=== PATIENT | female | born 1945 | race Caucasian/White ===

== ENCOUNTER 2018-01-03 11:39 | Outpatient (REF) | payer MEDICARE, BC, SELFPAY | END 2018-01-03 11:40 | LOC: NCHCN 11:39 | PROVIDERS: PCP Internal Medicine; Visit Provider Internal Medicine | DX: R30.9 Painful micturition, unspecified (principal); R35.0 Frequency of micturition | CPT/HCPCS: 87077; 87086; 87186 ==

== ENCOUNTER 2018-04-22 09:54 | Outpatient (CLI) | payer MEDICARE, BC, SELFPAY ==
[2018-04-22 10:19] LABS: Absolute Basophil Count 0.02 k/cumm (0.0-0.2); Absolute Eosinophil Count 0.18 k/cumm (0.0-0.7); Absolute Lymphocyte Count 1.18 k/cumm (1.2-3.4); Absolute Monocyte Count 0.39 k/cumm (0.11-0.7); Absolute Neutrophil Count 2.48 k/cumm (1.2-6.7); Basophils % 0.5; Eosinophils % 4.2; HCT 38.4 % (36.0-46.0); HGB 13.6 g/dL (12.0-15.5); Lymphocytes % 27.8; Mean Corp. HGB Concentration 35.4 g/dL (32.0-36.0); Mean Corpuscular Hemoglobin 31.5 pg (27.0-33.0); Mean Corpuscular Volume 88.9 fL (80-95); Mean Platelet Volume 9.3 fL (8.0-11.0); Monocytes % 9.2; Neutrophils % 58.3; Platelet Count 190 x1000/uL (130-400); RBC 4.32 m/cumm (4.00-5.20); RBC Distribution Width 12.7 % (11.7-14.6); White Blood Cell Count 4.25 k/cumm (4.4-10.8)
[2018-04-22 10:31] LABS: ALT 46 U/L (12-78); AST 27 U/L (15-37); Albumin 3.7 g/dL (3.4-5.0); Alkaline Phosphatase 62 U/L (46-116); Anion Gap 9.5 mmol/L (3-11); BUN 22 mg/dL (7-18); Bilirubin, Total 0.7 mg/dL (0.2-1.0); CO2 28.5 mmol/L (21.0-32.0); CREATININE 0.99 mg/dL (0.55-1.02); Calcium 10.3 mg/dL (8.5-10.1); Chloride 104 mmol/L (98-107); Estimated GFR 55.14 (mL/min/1.73m2); Glucose 134 mg/dL (70-100); Potassium 3.5 mmol/L (3.5-5.1); Sodium 142 mmol/L (136-145); Total Protein 7.3 g/dL (6.4-8.2)
== END 2018-04-22 10:14 ==
PROVIDERS: PCP Internal Medicine; Visit Provider Nurse Practitioner Adult Health
DX: C50.412 Malignant neoplasm of upper-outer quadrant of left female breast (principal); Z17.0 Estrogen receptor positive status [ER+]
CPT/HCPCS: 36415; 80053; 85025

== ENCOUNTER 2018-05-20 11:10 | Outpatient (REF) | payer MEDICARE, BC, SELFPAY | END 2018-05-20 11:30 | LOC: NCHCN 11:10 | PROVIDERS: PCP Internal Medicine; Visit Provider Internal Medicine | DX: R30.0 Dysuria (principal) | CPT/HCPCS: 87077; 87086; 87186 ==

== ENCOUNTER 2019-01-30 14:11 | Outpatient (CLI) | payer MEDICARE, BC, SELFPAY ==
[2019-01-30 14:30] LABS: Absolute Basophil Count 0.04 k/cumm (0.0-0.2); Absolute Eosinophil Count 0.39 k/cumm (0.0-0.7); Absolute Lymphocyte Count 1.28 k/cumm (1.2-3.4); Absolute Monocyte Count 0.47 k/cumm (0.11-0.7); Absolute Neutrophil Count 2.94 k/cumm (1.2-6.7); Basophils % 0.8; Eosinophils % 7.6; HCT 37.9 % (36.0-46.0); HGB 13.1 g/dL (12.0-15.5); Mean Corp. HGB Concentration 34.6 g/dL (32.0-36.0); Mean Corpuscular Hemoglobin 30.8 pg (27.0-33.0); Mean Corpuscular Volume 89.2 fL (80-95); Mean Platelet Volume 9.4 fL (8.0-11.0); Monocytes % 9.2; Neutrophils % 57.4; Platelet Count 217 x1000/uL (130-400); RBC 4.25 m/cumm (4.00-5.20); White Blood Cell Count 5.12 k/cumm (4.4-10.8)
[2019-01-30 14:44] LABS: ALT 25 U/L (14-59); AST 22 U/L (15-37); Albumin 3.7 g/dL (3.4-5.0); Alkaline Phosphatase 71 U/L (46-116); Anion Gap 8.6 mmol/L (3-11); BUN 19 mg/dL (7-18); CO2 28.4 mmol/L (21.0-32.0); CREATININE 0.95 mg/dL (0.55-1.02); Calcium 9.5 mg/dL (8.5-10.1); Chloride 103 mmol/L (98-107); Estimated GFR 57.66 (mL/min/1.73m2); Glucose 143 mg/dL (70-100); Potassium 3.6 mmol/L (3.5-5.1); Sodium 140 mmol/L (136-145); Total Protein 7.3 g/dL (6.4-8.2)
[2019-01-31 15:58] LABS: Cancer Ag 15-3 16 U/mL (<30)
== END 2019-01-30 14:31 ==
PROVIDERS: PCP Internal Medicine; Visit Provider Nurse Practitioner Adult Health
DX: C56.9 Malignant neoplasm of unspecified ovary (principal); C50.412 Malignant neoplasm of upper-outer quadrant of left female breast; Z17.0 Estrogen receptor positive status [ER+]
CPT/HCPCS: 36415; 80053; 86304; 85025; 86300

== ENCOUNTER 2019-04-03 11:31 | Outpatient (REF) | payer MEDICARE, BC, SELFPAY ==
[2019-04-03 21:09] LABS: BUN 17 mg/dL (7-18); CREATININE 0.94 mg/dL (0.55-1.02); Calcium 9.6 mg/dL (8.5-10.1); Chloride 104 mmol/L (98-107); Estimated GFR 58.37 (mL/min/1.73m2); Glucose 102 mg/dL (70-100); Magnesium 1.7 mg/dL (1.8-2.4); Potassium 3.7 mmol/L (3.5-5.1); Sodium 142 mmol/L (136-145)
== END 2019-04-03 11:51 ==
LOC: NCHCN 11:31
PROVIDERS: PCP Nurse Practitioner Family; Visit Provider Nurse Practitioner Family
DX: I10 Essential (primary) hypertension (principal)
CPT/HCPCS: 80048; 83735

== ENCOUNTER → 2019-06-08 09:47 | Outpatient (BNVA) | payer MEDICARE, BC, SELFPAY | PROVIDERS: PCP Nurse Practitioner Family; Referring Provider Nurse Practitioner Family; Visit Provider Psychiatry & Neurology Neurology | DX: H81.13 Benign paroxysmal vertigo, bilateral (principal); R51 Headache; M54.81 Occipital neuralgia | CPT/HCPCS: 64405; 99205; 99215 ==

== ENCOUNTER → 2019-08-23 10:58 | Outpatient (BNVA) | payer MEDICARE, BC, SELFPAY | PROVIDERS: PCP Nurse Practitioner Family; Referring Provider Nurse Practitioner Family; Visit Provider Psychiatry & Neurology Neurology | DX: M54.81 Occipital neuralgia (principal) | CPT/HCPCS: 64405 ==

== ENCOUNTER 2019-11-07 10:11 | Outpatient (RCR) | payer MEDICARE, BC, SELFPAY ==
[2019-11-07 11:22] LABS: ALT 34 U/L (14-59); AST 24 U/L (15-37); Albumin 3.4 g/dL (3.4-5.0); Alkaline Phosphatase 68 U/L (46-116); Anion Gap 7.8 mmol/L (3-11); BUN 17 mg/dL (7-18); Bilirubin, Total 0.9 mg/dL (0.2-1.0); CO2 28.2 mmol/L (21.0-32.0); CREATININE 0.91 mg/dL (0.55-1.02); Calcium 9.5 mg/dL (8.5-10.1); Chloride 105 mmol/L (98-107); Glucose 94 mg/dL (74-106); Potassium 3.5 mmol/L (3.5-5.1); Sodium 141 mmol/L (136-145); Total Protein 6.8 g/dL (6.4-8.2)
== END 2019-11-14 23:59 | disposition home or self-care (01) ==
LOC: INF 10:11
PROVIDERS: PCP Nurse Practitioner Family; Visit Provider Internal Medicine Hematology & Oncology
DX: C50.412 Malignant neoplasm of upper-outer quadrant of left female breast (principal)
CPT/HCPCS: 36415; 80053

== ENCOUNTER → 2020-03-12 14:45 | Outpatient (BNVA) | payer MEDICARE, BC, SELFPAY | PROVIDERS: PCP Nurse Practitioner Family; Referring Provider Nurse Practitioner Family; Visit Provider Psychiatry & Neurology Neurology | DX: M54.81 Occipital neuralgia (principal); H81.10 Benign paroxysmal vertigo, unspecified ear; I10 Essential (primary) hypertension | CPT/HCPCS: 64405; 99213 ==

== ENCOUNTER 2020-06-13 09:17 | Outpatient (REF) | payer MEDICARE, BC, SELFPAY ==
[2020-06-13 13:54] LABS: HCT 39.2 % (36.0-46.0); HGB 13.4 g/dL (11.2-15.7); MCH 30.2 pg (27.0-33.0); MCHC 34.2 % (32.0-36.0); MCV 88.5 fL (80-95); Platelet Count 199 10^3/uL (130-400); RBC 4.43 10^6/uL (3.93-5.22); RDW 12.5 % (11.7-14.6); WBC 4.71 10^3/uL (4.4-10.8)
[2020-06-13 14:22] LABS: Ferritin 142 ng/mL (8-252)
== END 2020-06-13 09:37 ==
LOC: NCHCN 09:17
PROVIDERS: PCP Nurse Practitioner Family; Visit Provider Internal Medicine
DX: E78.5 Hyperlipidemia, unspecified (principal); E61.1 Iron deficiency
CPT/HCPCS: 85027; 82728